=== PATIENT | male | born 1975 ===

== ENCOUNTER 2016-09-26 12:37 | Emergency (ER) | payer OTHER ==
[2016-09-26 13:42] VITALS: BP 140/85
--- NOTE | 2016-09-26 14:13 | RAD ---
HISTORY: Fall on stairs 2 days ago, left knee injury and pain COMPARISONS: None VIEWS: 4, Frontal, lateral, axial, and oblique views of the left knee FINDINGS: BONE DENSITY: Normal. BONES: There is no displaced fracture. There is a small superior patellar enthesophyte JOINTS: There is no arthropathy. There is no suprapatellar joint effusion or lipohemarthrosis. ALIGNMENT: There is no dislocation. SOFT TISSUES: Unremarkable. OTHER FINDINGS: None. IMPRESSION: NO ACUTE OSSEOUS INJURY. IF SYMPTOMS PERSIST, RECOMMEND REPEAT IMAGING.
--- NOTE | 2016-09-26 14:25 | UC ---
Knee Pain HPI - HPI Summary HPI Summary: Fell on stairs 2 days ago, has had increasing generalized pain in L knee since then. Feels like joint is giving out when he tries to bear weight on it. No hx of sx or fx. - History of Current Complaint Chief Complaint: UCUpperExtremity Stated Complaint: KNEE INJURY Time Seen by Provider: 09/26/16 13:41 Hx Obtained From: Patient Onset/Duration: Sudden Onset Severity Initially: Moderate Severity Currently: Moderate Character: Dull, Aching Aggravating Factor(s): Movement, Weight Bearing Alleviating Factor(s): Rest Able to Bear Weight: Yes - feels instability - Allergies/Home Medications Allergies/Adverse Reactions: Allergies Allergy/AdvReac Type Severity Reaction Status Date / Time No Known Allergies Allergy Verified 09/26/16 12:49 Home Medications: Home Medications Buprenorphine HCl-Naloxone HCl [Suboxone 12-3 mg] 09/26/16 [History] Venlafaxine CAP (NF) [Effexor CAP (NF)] 75 mg 09/26/16 [History] PMH/Surg Hx/FS Hx/Imm Hx Previously Healthy: Yes - Surgical History Surgical History: None - Family History Known Family History: Positive: Hypertension - Social History Occupation: Unemployed Alcohol Use: None Substance Use Type: Prescribed Substance Use Comment - Amount & Last Used: suboxone as perscribed Smoking Status (MU): Heavy Every Day Tobacco Smoker Amount Used/How Often: 1ppd Household Exposure Type: Cigarettes Review of Systems Constitutional: Negative Skin: Negative Eyes: Negative ENT: Negative Respiratory: Negative Cardiovascular: Negative Gastrointestinal: Negative Genitourinary: Negative Motor: Negative Neurovascular: Negative Musculoskeletal: Arthralgia Neurological: Negative Psychological: Negative All Other Systems Reviewed And Are Negative: Yes Physical Exam Triage Information Reviewed: Yes Appearance: Well-Appearing, No Pain Distress, Well-Nourished Vital Signs: Initial Vital Signs Temp 98.1 F 09/26/16 12:44 Pulse 77 09/26/16 12:44 Resp 16 09/26/16 12:44 BP 156/85 09/26/16 12:44 Pulse Ox 99 09/26/16 12:44 Vital Signs Reviewed: Yes Eye Exam: Normal Eyes: Positive: Conjunctiva Clear ENT Exam: Normal ENT: Positive: Normal ENT inspection, Hearing grossly normal, Pharynx normal, TMs normal Dental Exam: Normal Neck exam: Normal Neck: Positive: Supple, Nontender, No Lymphadenopathy Respiratory Exam: Normal Respiratory: Positive: Chest non-tender, Lungs clear, Normal breath sounds, No respiratory distress, No accessory muscle use Cardiovascular Exam: Normal Cardiovascular: Positive: RRR, No Murmur Musculoskeletal: Positive: No Edema, ROM Limited @ - L knee Neurological Exam: Normal Psychological Exam: Normal Skin Exam: Normal Knee Pain Course/Dx - Differential Dx/Diagnosis Provider Diagnoses: L knee sprain Discharge - Discharge Plan Condition: Stable Disposition: HOME Prescriptions: Naproxen [Naproxen EC] 500 mg PO BID #20 tab Patient Education Materials: Knee Sprain (ED) Referrals: Ruddy Schneider MD [Medical Doctor] - 5 Days Additional Instructions: As we discussed, your sensation of your knee "giving out" is suspicious for ligament injury. If you continue to have instability, you may need an MRI. This can be ordered by the orthopedist. Please wear the knee immobilizer for all walking prior to your orthopedics appointment.
== END 2016-09-26 14:33 | disposition home or self-care (01) ==
LOC: UCEAST 12:37
DX: S83.92XA Sprain of unspecified site of left knee, initial encounter (principal); W10.9XXA Fall (on) (from) unspecified stairs and steps, initial encounter; Y93.9 Activity, unspecified; Y92.9 Unspecified place or not applicable; F17.210 Nicotine dependence, cigarettes, uncomplicated
CPT/HCPCS: 99201; G0463